=== PATIENT | male | born 1945 | race Caucasian/White ===

== ENCOUNTER 2017-08-15 11:56 | Day surgery (SDC) | payer OTHER ==
[~2017-08-15 11:56] MED LIST: ASPIR 8181 M1 PO; CRESTOR5 MG PO
== END 2017-08-15 14:00 | disposition home or self-care (01) ==
LOC: PAIN 11:56 → SDC 12:30 → PAIN 12:30
DX: M54.16 Radiculopathy, lumbar region (principal); J44.9 Chronic obstructive pulmonary disease, unspecified; E78.00 Pure hypercholesterolemia, unspecified; Z87.891 Personal history of nicotine dependence; Z79.82 Long term (current) use of aspirin
CPT/HCPCS: J1100; J2250; J3010

== ENCOUNTER 2017-09-12 10:42 | Day surgery (SDC) | payer OTHER ==
[~2017-09-12] VITALS: Ht 175.3 cm; Wt 75.0 kg
[~2017-09-12 10:42] MED LIST changes: +ONE DAILY FOR1 EAC2 PO; +VITAMIN D-32000 UNI2 PO; +VOLTAREN 1% GE100 GM TP
== END 2017-09-12 12:27 | disposition home or self-care (01) ==
LOC: PAIN 10:42 → SDC 11:15 → PAIN 12:27
DX: M47.26 Other spondylosis with radiculopathy, lumbar region (principal); M54.5 Low back pain; G89.29 Other chronic pain; M51.16 Intervertebral disc disorders with radiculopathy, lumbar region; M48.061 Spinal stenosis, lumbar region without neurogenic claudication; J44.9 Chronic obstructive pulmonary disease, unspecified; E78.5 Hyperlipidemia, unspecified; M41.9 Scoliosis, unspecified; Z87.891 Personal history of nicotine dependence; Z79.82 Long term (current) use of aspirin
CPT/HCPCS: J1100; J2250; J3010

== ENCOUNTER 2017-12-26 12:04 | Day surgery (SDC) | payer OTHER ==
[~2017-12-26] VITALS: Ht 175.3 cm; Wt 76.2 kg
== END 2017-12-26 14:20 | disposition home or self-care (01) ==
LOC: PAIN 12:04 → SDC 12:45 → PAIN 14:20
DX: M47.816 Spondylosis without myelopathy or radiculopathy, lumbar region (principal); M54.5 Low back pain; G89.29 Other chronic pain; M51.26 Other intervertebral disc displacement, lumbar region; M48.061 Spinal stenosis, lumbar region without neurogenic claudication; J44.9 Chronic obstructive pulmonary disease, unspecified; E78.5 Hyperlipidemia, unspecified; Z79.82 Long term (current) use of aspirin; Z87.891 Personal history of nicotine dependence; Z79.891 Long term (current) use of opiate analgesic; Z85.46 Personal history of malignant neoplasm of prostate
CPT/HCPCS: J1030; J2250; S0020

== ENCOUNTER 2018-01-02 08:32 | Day surgery (SDC) | payer OTHER ==
[~2018-01-02] VITALS: Ht 175.3 cm; Wt 76.2 kg
== END 2018-01-02 09:30 | disposition home or self-care (01) ==
LOC: PAIN 08:32 → SDC 09:15 → PAIN 09:30
PROC: BR161ZZ Fluoroscopy of Lumbar Facet Joint(s) using Low Osmolar Contrast (ICD-10-PCS; principal; 2018-01-02)
PROC: 3E0T33Z Introduction of Anti-inflammatory into Peripheral Nerves and Plexi, Percutaneous Approach (ICD-10-PCS; principal; 2018-01-02)
PROC: 3E0T3BZ Introduction of Anesthetic Agent into Peripheral Nerves and Plexi, Percutaneous Approach (ICD-10-PCS; principal; 2018-01-02)
DX: M47.816 Spondylosis without myelopathy or radiculopathy, lumbar region (principal); G89.29 Other chronic pain; M51.26 Other intervertebral disc displacement, lumbar region; M48.061 Spinal stenosis, lumbar region without neurogenic claudication; E78.5 Hyperlipidemia, unspecified; Z79.82 Long term (current) use of aspirin; Z87.891 Personal history of nicotine dependence; E78.00 Pure hypercholesterolemia, unspecified
CPT/HCPCS: J1030; J2250; J3010; S0020

== ENCOUNTER 2018-03-04 08:51 | Day surgery (SDC) | payer OTHER ==
[~2018-03-04] VITALS: Ht 175.3 cm; Wt 77.1 kg
== END 2018-03-04 10:35 | disposition home or self-care (01) ==
LOC: PAIN 08:51 → SDC 09:30 → PAIN 09:30
DX: M47.816 Spondylosis without myelopathy or radiculopathy, lumbar region (principal); M51.26 Other intervertebral disc displacement, lumbar region; M41.9 Scoliosis, unspecified; M48.061 Spinal stenosis, lumbar region without neurogenic claudication; M19.90 Unspecified osteoarthritis, unspecified site; E78.5 Hyperlipidemia, unspecified; Z87.891 Personal history of nicotine dependence
CPT/HCPCS: J1030; J1885; S0020

== ENCOUNTER 2018-03-11 08:51 | Day surgery (SDC) | payer OTHER ==
[~2018-03-11] VITALS: Ht 175.3 cm; Wt 76.2 kg
== END 2018-03-11 09:45 | disposition home or self-care (01) ==
LOC: PAIN 08:51 → SDC 09:30 → PAIN 09:45
DX: M47.816 Spondylosis without myelopathy or radiculopathy, lumbar region (principal); M48.061 Spinal stenosis, lumbar region without neurogenic claudication; M51.26 Other intervertebral disc displacement, lumbar region; M79.1 Myalgia; M41.9 Scoliosis, unspecified; E78.5 Hyperlipidemia, unspecified; I10 Essential (primary) hypertension; J44.9 Chronic obstructive pulmonary disease, unspecified; Z87.891 Personal history of nicotine dependence; Z79.82 Long term (current) use of aspirin; Z79.891 Long term (current) use of opiate analgesic
CPT/HCPCS: J1030; J1885; S0020